=== PATIENT | female | born 1975 | race Caucasian/White ===

== ENCOUNTER 2016-12-07 16:39 | Emergency (ER) | payer OTHER ==
[~2016-12-07] VITALS: Ht 170.2 cm; Wt 95.2 kg
[2016-12-07 20:23] VITALS: BP 135/86
[2016-12-07 20:37] LABS: MEAN CORPUSCULAR HEMOGLOBIN 24.5 pg (27.0-33.0); MEAN CORPUSCULAR VOLUME 76.6 fl (80.0-96.0); RED CELL DISTRIBUTION WIDTH 16.5 % (11.5-14.5)
[2016-12-07 20:48] LABS: INR 0.97
[2016-12-07 21:02] LABS: CONTROL LINE HCG INT CTR LINE PRESENT
[2016-12-07 21:06] LABS: ANION GAP 5 MEQ/L (8-16); BLOOD UREA NITROGEN 8 MG/DL (7-18); CALCIUM LEVEL 9.1 MG/DL (8.5-10.1); CARBON DIOXIDE LEVEL 27 MEQ/L (21-32); CHLORIDE LEVEL 103 MEQ/L (98-107); CREATININE FOR GFR 0.82 MG/DL (0.55-1.02); GLOMERULAR FILTRATION RATE > 60.0 (>58); GLUCOSE, FASTING 95 MG/DL (70-105); POTASSIUM SERUM 4.8 MEQ/L (3.5-5.1); SODIUM LEVEL 135 MEQ/L (136-145)
[2017-01-05] MEDS ORDERED: VITA200028 PO (12:24)
== END 2016-12-07 21:50 | disposition home or self-care (01) ==
LOC: M ED 16:39
DX: N92.1 Excessive and frequent menstruation with irregular cycle (principal); D64.9 Anemia, unspecified; F17.200 Nicotine dependence, unspecified, uncomplicated

== ENCOUNTER → 2016-12-15 | Outpatient (CLI) | payer OTHER ==
[~2016-12-15] MED LIST: VITA200028 PO
[2016-12-15 15:27] LABS: BASO # 0.1 K/mm3 (0.0-0.2); BASO % 0.7 % (0.0-1.0); EOS # 0.2 K/mm3 (0.0-0.50); EOS % 1.7 % (0.0-3.0); LARGE UNSTAINED CELL # 0.2 K/mm3 (0.0-0.4); LARGE UNSTAINED CELL % 1.8 % (0.0-4.0); LYMPH # 3.1 K/mm3 (1.5-4.5); LYMPH % 28.8 % (24.0-44.0); MEAN CORPUSCULAR HEMOGLOBIN 24.2 pg (27.0-33.0); MEAN CORPUSCULAR HGB CONC 31.5 g/dl (32.0-36.5); MEAN CORPUSCULAR VOLUME 76.8 fl (80.0-96.0); MONO # 0.5 K/mm3 (0.0-0.8); MONO % 4.9 % (0.0-5.0); NEUTROPHILS # 6.3 K/mm3 (1.8-7.7); NEUTROPHILS % 62.1 % (36.0-66.0); PLATELET COUNT, AUTOMATED 474 k/mm3 (150-450); RED CELL DISTRIBUTION WIDTH 16.3 % (11.5-14.5); WHITE BLOOD COUNT 10.2 K/mm3 (4.0-10.0)
[2016-12-15 15:56] LABS: FREE T4 0.95 NG/DL (0.76-1.46)
[2016-12-15 16:45] LABS: PROLACTIN 4.6 NG/ML
== END ==
LOC: M LAB 15:01
PROVIDERS: ATTEND Nurse Practitioner Women's Health
DX: N92.0 Excessive and frequent menstruation with regular cycle (principal)

== ENCOUNTER 2017-01-14 10:54 | Day surgery (SDC) | payer OTHER ==
[~2017-01-14] VITALS: Ht 170.2 cm; Wt 95.7 kg
[2017-01-14] MEDS ORDERED: LR 1,000 ML IV SCH ×3 (11:00→14:30)
[2017-01-14 11:35] LABS: CONTROL LINE UCG INT CTR LINE PRESENT
[2017-01-14] MEDS ORDERED: NEOSTIGMINE 1MG/ML 5 ML SYRINGE (J2710) As Ordered ONE (13:01)
[2017-01-14] MEDS ORDERED: GLYCOPYRROLATE INJ 0.2 MG/ML 2 ML VIAL As Ordered ONE (13:01)
[2017-01-14] MEDS ORDERED: HYDROmorphone HCL 2 MG/ML 1ML VIAL (J1170) As Ordered ONE (13:01)
[2017-01-14] MEDS ORDERED: fentaNYL 250 MCG/5 ML INJECTION (J3010) As Ordered ONE (13:54)
[2017-01-14] MEDS ORDERED: MIDAZOLAM INJ 2 MG/2 ML VIAL (J2250) As Ordered ONE (13:54)
[2017-01-14] MEDS ORDERED: MORPHINE 10 MG/ML 1ML VIAL As Ordered ONE (13:54)
[2017-01-14] MEDS ORDERED: PERCOCET 5MG/325MG TAB As Ordered ONE (13:54)
[2017-01-14] MEDS ORDERED: LIDOCAINE 2% INJ 100 MG/5 ML SDV (FOR ANES.) As Ordered ONE (13:55)
[2017-01-14] MEDS ORDERED: PROPOFOL 200 MG/20 ML VIAL As Ordered ONE (13:55)
[2017-01-14] MEDS ORDERED: ONDANSETRON 4MG/2ML VIAL (J2405) As Ordered ONE (13:55)
[2017-01-14] MEDS ORDERED: ROCURONIUM BROMIDE 50 MG/5 ML VIAL/SYRINGE As Ordered ONE (13:55)
[2017-01-14] MEDS ORDERED: KETOROLAC 60 MG/2 ML VIAL (J1885) As Ordered ONE (13:55)
[2017-01-14] MEDS ORDERED: dexameTHASONE 4 MG/ML 1ML VIAL (J1100) As Ordered ONE (13:55)
[2017-01-14] MEDS: PERCOCET 5MG/325MG TAB PO PRN ×2 (14:00→14:33)
[2017-01-14] MEDS ORDERED: METOCLOPRAMIDE INJ 10MG/2ML VIAL (J2765) IV PRN (14:30)
[2017-01-14] MEDS ORDERED: MORPHINE 2 MG/ML 1ML SYRINGE IV PRN (14:30)
[2017-01-14] MEDS ORDERED: fentaNYL 100 MCG/2 ML INJECTION (J3010) IV PRN (14:30)
[2017-01-14] MEDS ORDERED: ONDANSETRON 4MG/2ML VIAL (J2405) IV PRN (14:30)
[2017-01-14] MEDS ORDERED: IBUPROFEN 600 MG TAB PO PRN (14:45)
[2017-01-14] MEDS ORDERED: NORCO, ANEXSIA 5/325MG TABLET (HYDROcodone/ACETAMINOPHEN) PO PRN (14:45)
[2017-01-14 15:50] VITALS: BP 148/75
--- NOTE | 2017-01-15 09:16 | RO ---
DATE OF PROCEDURE: 01/14/2017 PREOPERATIVE DIAGNOSES: Dysmenorrhea and menorrhagia. Desire for permanent sterilization. POSTOPERATIVE DIAGNOSES: Dysmenorrhea and menorrhagia. Desire for permanent sterilization. Right ovarian cyst. Removal of IUD. OPERATIVE PROCEDURE: Laparoscopic bilateral tubal ligation, cautery with drainage of right tubal simple cyst , dilation and curettage (D and C), hysteroscopy, NovaSure ablation. SURGEON: Daniella Becker MD SNAGGER: ANESTHESIA: General endotracheal anesthesia. BRIEF DESCRIPTION OF PROCEDURE AND FINDINGS: Amee was brought to the operating room where sufficient general endotracheal anesthesia was induced and she was prepped, draped and positioned in the usual sterile fashion. With the weighted speculum placed, the cervix was grasped with a single tooth tenaculum, the uterus was sounded to 9 cm with an endocervical cavity length of 4 giving an endometrial cavity length of 5, so we had length of 5 set at this point. We subsequently measured width at 4.2, but at this point we did not have that measurement yet. We removed the IUD. We dilated the cervix enough to allow introduction of the manipulator and turned our attention to the abdomen. A transverse semilunar incision was made below the umbilicus. Sharp and blunt dissection continued through subcutaneous tissues to the level of the rectus fascia, which was elevated with Arie clamps, transversely incised and secured with #0 Vicryl tension suture. The peritoneum was then entered under direct visualization and next a Malina cannula placed into the peritoneal cavity under direct visualization. CO2 insufflation was then begun. After adequate CO2 insufflation, the peritoneal cavity was visualized. There were normal shiny peritoneal surfaces throughout with no excrescences, ascites nor exudate. There was a right ovarian simple appearing cyst. The tubes themselves were normal in appearance as was the upper abdomen and the lateral aspect of the abdomen. The bipolar Kleppinger was used to cauterize the tubes, starting first on the left and then moving to the right in four separate locations each. Photographs were taken to document our progress, then the long aspirating needle was used to drain this simple appearing ovarian cyst and serous fluid was released consistent with the expectation that this is just a functional cyst, slightly larger than typical size. After we drained it, the ovary was normal, so we stopped there and the CO2 was allowed to escape the abdomen. The instruments were removed. The fascial wound was closed with #0 Vicryl retention suture and the skin was closed with #3-0 Vicryl in a subcuticular stitch and attention was then turned to the ablation and the hysteroscopy. The IUD had already been removed, the uterine manipulator was removed. The hysteroscope was placed and although there was some small blood clots present consistent with having used the manipulator against the endometrium. There was no evidence of perforation. The ostia were normal. There were no significant lesions. Curettage was carried out to even out the endometrial lining and then the NovaSure ablative device was placed. Again, length was set at 5, width was set at 4.2 and an uncomplicated NovaSure ablation was then carried out. The procedure was then ended. COMPLICATIONS: None. ESTIMATED BLOOD LOSS: 4 mL FLUID REPLACED: Crystalloid. CONDITION AND DISPOSITION: Amee tolerated the procedure well and was recovering in the recovery room in good condition.
== END 2017-01-14 16:00 | disposition home or self-care (01) ==
LOC: M SDC 10:54
PROVIDERS: ATTEND Obstetrics & Gynecology
DX: N94.6 Dysmenorrhea, unspecified (principal); N92.0 Excessive and frequent menstruation with regular cycle; E55.9 Vitamin D deficiency, unspecified; F17.210 Nicotine dependence, cigarettes, uncomplicated
CPT/HCPCS: 49322; 58301; 58563; 58670; 84703; 88108; 88305; 88313; A4649; J1100; J1170; J1885; J2250; J2405; J2710; J3010